=== PATIENT | female | born 1990 | race Caucasian/White ===

== ENCOUNTER 2018-06-03 11:14 | Emergency (ER) | payer OTHER ==
[2018-06-03] MEDS: ACETAMINOPHEN 325 MG TAB PO (12:02)
[2018-06-03 12:17] LABS: ADD MAN DIFF? NO
[2018-06-03 12:27] LABS: ADD UMIC YES; UR ASCORBIC ACID 20 mg/dL (NEGATIVE); UR BACTERIA FEW /HPF (NONE SEEN); UR BILIRUBIN (Dip) NEGATIVE (NEGATIVE); UR BLOOD (Dip) NEGATIVE (NEGATIVE); UR CLARITY CLOUDY (CLEAR); UR COLOR YELLOW (YELLOW); UR GLUCOSE (Dip) NEGATIVE (NEGATIVE); UR KETONES (Dip) NEGATIVE (NEGATIVE); UR LEUKOCYTE ESTERASE (Dip) 2+ Leu/ul (NEGATIVE); UR MUCUS FEW /HPF (NONE SEEN); UR NITRITE (Dip) NEGATIVE (NEGATIVE); UR RBC 2 /HPF (0-5); UR SPECIFIC GRAVITY (Dip) 1.012 (1.003-1.030); UR SQUAMOUS EPITHELIAL CELL MANY /HPF (FEW); UR TOTAL PROTEIN (Dip) NEGATIVE (NEGATIVE); UR UROBILINOGEN (Dip) NEGATIVE (NEGATIVE); UR WBC 15 /HPF (0-5)
[2018-06-03 12:31] LABS: BASOPHIL # 0.1 10^3/ul (0.0-0.1); BASOPHILS % 0.8 % (0.0-2.0); EOSINOPHILS # 0.1 10^3/ul (0.0-0.5); EOSINOPHILS % 0.7 % (0.0-7.0); HEMATOCRIT 40.4 % (37.0-47.0); HEMOGLOBIN 13.9 g/dl (12.0-16.0); LYMPHOCYTES # 2.1 10^3/ul (0.8-2.9); LYMPHOCYTES % 19.9 % (15.0-51.0); MEAN CORPUSCULAR HEMOGLOBIN 30.8 pg (29.0-33.0); MEAN CORPUSCULAR HGB CONC 34.4 g/dl (32.0-37.0); MEAN CORPUSCULAR VOLUME 89.4 fl (82.0-101.0); MEAN PLATELET VOLUME 10.7 fl (7.4-10.4); MONOCYTE # 0.6 10^3/ul (0.3-0.9); MONOCYTES % 5.9 % (0.0-11.0); NEUTROPHIL # 7.5 10^3/ul (1.6-7.5); NEUTROPHILS % 72.2 % (39.0-77.0); PLATELET COUNT 277 10^3/UL (140-415); RED BLOOD COUNT 4.52 10^6/ul (4.20-5.40); RED CELL DISTRIBUTION WIDTH 13.5 % (11.5-14.5)
[2018-06-03 12:31] LABS: WHITE BLOOD COUNT 10.4 10^3/ul (4.8-10.8)
== END 2018-06-03 14:21 | disposition home or self-care (01) ==
LOC: FTE 11:14
DX: O23.41 Unspecified infection of urinary tract in pregnancy, first trimester (principal); R10.2 Pelvic and perineal pain; Z3A.01 Less than 8 weeks gestation of pregnancy
CPT/HCPCS: 36415; 76801; 81001; 84702; 85025; 86900; 86901; 99284-25

== ENCOUNTER 2018-08-16 16:04 | Emergency (ER) | payer OTHER ==
[2018-08-16] MEDS: ACETAMINOPHEN 325 MG TAB PO (17:06)
[2018-08-16 17:19] LABS: ADD MAN DIFF? NO
[2018-08-16 17:28] LABS: ADD UMIC YES; UR ASCORBIC ACID NEGATIVE (NEGATIVE); UR BACTERIA FEW /HPF (NONE SEEN); UR BILIRUBIN (Dip) NEGATIVE (NEGATIVE); UR BLOOD (Dip) NEGATIVE (NEGATIVE); UR CLARITY CLOUDY (CLEAR); UR COLOR YELLOW (YELLOW); UR GLUCOSE (Dip) NEGATIVE (NEGATIVE); UR KETONES (Dip) NEGATIVE (NEGATIVE); UR LEUKOCYTE ESTERASE (Dip) 3+ Leu/ul (NEGATIVE); UR MUCUS FEW /HPF (NONE SEEN); UR NITRITE (Dip) NEGATIVE (NEGATIVE); UR RBC 3 /HPF (0-5); UR SPECIFIC GRAVITY (Dip) 1.021 (1.003-1.030); UR SQUAMOUS EPITHELIAL CELL MANY /HPF (FEW); UR TOTAL PROTEIN (Dip) NEGATIVE (NEGATIVE); UR UROBILINOGEN (Dip) NEGATIVE (NEGATIVE); UR WBC 6 /HPF (0-5)
[2018-08-16 18:11] LABS: BASOPHIL # 0.1 10^3/ul (0.0-0.1); BASOPHILS % 0.6 % (0.0-2.0); EOSINOPHILS # 0.1 10^3/ul (0.0-0.5); EOSINOPHILS % 0.9 % (0.0-7.0); HEMATOCRIT 38.9 % (37.0-47.0); HEMOGLOBIN 13.1 g/dl (12.0-16.0); LYMPHOCYTES # 2.6 10^3/ul (0.8-2.9); MEAN CORPUSCULAR HEMOGLOBIN 30.3 pg (29.0-33.0); MEAN CORPUSCULAR HGB CONC 33.7 g/dl (32.0-37.0); MEAN PLATELET VOLUME 11.4 fl (7.4-10.4); MONOCYTE # 0.7 10^3/ul (0.3-0.9); MONOCYTES % 5.2 % (0.0-11.0); NEUTROPHIL # 8.9 10^3/ul (1.6-7.5); NEUTROPHILS % 71.6 % (39.0-77.0); PLATELET COUNT 238 10^3/UL (140-415); RED BLOOD COUNT 4.32 10^6/ul (4.20-5.40)
[2018-08-16 18:11] LABS: WHITE BLOOD COUNT 12.4 10^3/ul (4.8-10.8)
== END 2018-08-16 19:05 | disposition home or self-care (01) ==
LOC: FTE 16:04
DX: O44.12 Complete placenta previa with hemorrhage, second trimester (principal); O23.42 Unspecified infection of urinary tract in pregnancy, second trimester; Z3A.17 17 weeks gestation of pregnancy
CPT/HCPCS: 36415; 76810; 81001; 84702; 85025; 86900; 86901; 99284-25

== ENCOUNTER 2019-01-20 08:50 | Inpatient (IN) | payer MEDICAID ==
[2019-01-20] MEDS ORDERED: BUTORPHANOL 2 MG INJ IV (10:00)
[2019-01-20] MEDS ORDERED: BUTORPHANOL 1 MG INJ IV (10:00)
[2019-01-20] MEDS ORDERED: METHYLERGONOVINE 0.2 MG INJ IM (10:00)
[2019-01-20] MEDS ORDERED: CARBOPROST 250 MCG INJ IM (10:00)
[2019-01-20] MEDS ORDERED: IBUPROFEN 600 MG TAB PO (10:00)
[2019-01-20] MEDS ORDERED: OXYTOCIN 30 UNITS/LR 500 ML IV ×2 (10:00)
[2019-01-20] MEDS ORDERED: MISOPROSTOL 200 MCG TAB PR (10:00)
[2019-01-20 12:27] LABS: ADD MAN DIFF? NO
[2019-01-20 12:30] LABS: BASOPHIL # 0.1 10^3/ul (0.0-0.1); BASOPHILS % 0.6 % (0.0-2.0); EOSINOPHILS % 0.5 % (0.0-7.0); HEMATOCRIT 37.5 % (37.0-47.0); HEMOGLOBIN 12.2 g/dl (12.0-16.0); LYMPHOCYTES # 1.4 10^3/ul (0.8-2.9); LYMPHOCYTES % 17.6 % (15.0-51.0); MEAN CORPUSCULAR HGB CONC 32.5 g/dl (32.0-37.0); MONOCYTE # 0.5 10^3/ul (0.3-0.9); MONOCYTES % 6.3 % (0.0-11.0); NEUTROPHIL # 5.7 10^3/ul (1.6-7.5); NEUTROPHILS % 74.2 % (39.0-77.0); PLATELET COUNT 182 10^3/UL (140-415); RED BLOOD COUNT 4.36 10^6/ul (4.20-5.40); RED CELL DISTRIBUTION WIDTH 15.3 % (11.5-14.5)
[2019-01-20 12:30] LABS: WHITE BLOOD COUNT 7.7 10^3/ul (4.8-10.8)
[2019-01-20] MEDS: LACTATED RINGER'S 1,000 ML IV ×2 (12:47→23:22)
[2019-01-20 12:53] LABS: INR 0.85; PROTIME 11.7 Sec (11.9-14.9); PT RATIO 0.9
[2019-01-20 12:54] LABS: PARTIAL THROMBOPLASTIN TIME 27.3 Sec (23.0-35.0)
[2019-01-20 13:25] LABS: HEPATITIS B SURFACE ANTIGEN NEGATIVE (NEGATIVE)
[2019-01-20 15:05] LABS: RAPID PLASMA REAGIN NONREACTIVE (NR)
[2019-01-20] MEDS: AMPICILLIN 2 GM/NS (PMX) 100 ML IV (15:49)
[2019-01-20] MEDS: OXYTOCIN 30 UNITS/LR 500 ML IV (16:02)
[2019-01-20] MEDS: AMPICILLIN 1 GM/NS (PMX) 50 ML IV (20:15)
[2019-01-21] MEDS: AMPICILLIN 1 GM/NS (PMX) 50 ML IV ×4 (00:12→14:21)
[2019-01-21] MEDS: LACTATED RINGER'S 1,000 ML IV ×4 (04:59→14:17)
[2019-01-21] MEDS ORDERED: FENTAnyl 2MCG/ML-ROPIV 0.2% 100 ML (06:29)
[2019-01-21] MEDS ORDERED: NALOXONE (0.4 MG/ML) INJ IV (07:00)
[2019-01-21] MEDS ORDERED: FENTAnyl 2MCG/ML-ROPIV 0.2% 100 ML BAG EPI (07:00)
[2019-01-21] MEDS ORDERED: ONDANSETRON 4 MG INJ IV (07:00)
[2019-01-21] MEDS: MINERAL OIL LIGHT 10 ML VIAL TOP (07:30)
[2019-01-21] MEDS: KETOROLAC 30 MG INJ IV (14:45)
[2019-01-21] MEDS: OXYTOCIN 30 UNITS/LR 500 ML IV (15:00)
[2019-01-21] MEDS: LIDOCAINE 1% (MPF) 30 ML INJ INJ (15:05)
[2019-01-21] MEDS: LACTATED RINGER'S 1,000 ML IV* ×2 (16:39→19:21)
[2019-01-21] MEDS ORDERED: CARBOPROST 250 MCG INJ IM (17:00)
[2019-01-21] MEDS ORDERED: ZOLPIDEM 5 MG TAB PO (17:00)
[2019-01-21] MEDS ORDERED: MISOPROSTOL 200 MCG TAB PR (17:00)
[2019-01-21] MEDS ORDERED: METHYLERGONOVINE 0.2 MG INJ IM (17:00)
[2019-01-21] MEDS ORDERED: HYDROCODONE/APAP (5/325) TAB PO ×2 (17:00)
[2019-01-21] MEDS ORDERED: OXYTOCIN 30 UNITS/LR 500 ML IV (17:00)
[2019-01-21] MEDS ORDERED: DIBUCAINE 1% 30 GM OINT TOP (17:00)
[2019-01-21] MEDS: LANOLIN HPA 1 PKT TOP (17:37)
[2019-01-21] MEDS: IBUPROFEN 600 MG TAB PO ×2 (17:37→23:17)
[2019-01-21] MEDS: WITCH HAZEL/GLYCERIN PAD PR (17:37)
[2019-01-21] MEDS: CEPHALEXIN 500 MG CAP PO ×2 (17:37→23:17)
[2019-01-21] MEDS: BENZOCAINE 20% 56 ML SPRAY TOP (17:38)
[2019-01-21] MEDS: MAGNESIUM HYDROXIDE 30ML CUP PO (21:00)
[2019-01-21] MEDS: SENNA/DOCUSATE NA (8.6MG/50MG) TAB PO (21:00)
[2019-01-22] MEDS: CEPHALEXIN 500 MG CAP PO ×4 (06:45→23:39)
[2019-01-22] MEDS: IBUPROFEN 600 MG TAB PO ×4 (06:45→23:39)
[2019-01-22 08:19] LABS: ADD MAN DIFF? NO
[2019-01-22 08:24] LABS: WHITE BLOOD COUNT 11.5 10^3/ul (4.8-10.8)
[2019-01-22 08:24] LABS: BASOPHILS % 0.3 % (0.0-2.0); EOSINOPHILS # 0.1 10^3/ul (0.0-0.5); EOSINOPHILS % 0.7 % (0.0-7.0); HEMATOCRIT 30.6 % (37.0-47.0); HEMOGLOBIN 9.9 g/dl (12.0-16.0); LYMPHOCYTES # 2.1 10^3/ul (0.8-2.9); LYMPHOCYTES % 18.1 % (15.0-51.0); MEAN CORPUSCULAR HGB CONC 32.4 g/dl (32.0-37.0); MEAN CORPUSCULAR VOLUME 86.7 fl (82.0-101.0); MEAN PLATELET VOLUME 11.9 fl (7.4-10.4); MONOCYTES % 8.7 % (0.0-11.0); NEUTROPHIL # 8.2 10^3/ul (1.6-7.5); NEUTROPHILS % 71.5 % (39.0-77.0); PLATELET COUNT 163 10^3/UL (140-415); RED BLOOD COUNT 3.53 10^6/ul (4.20-5.40); RED CELL DISTRIBUTION WIDTH 15.7 % (11.5-14.5)
[2019-01-22] MEDS: LACTATED RINGER'S 1,000 ML IV* ×2 (08:39→16:39)
[2019-01-22] MEDS: MAGNESIUM HYDROXIDE 30ML CUP PO ×2 (09:00→21:00)
[2019-01-22] MEDS: SENNA/DOCUSATE NA (8.6MG/50MG) TAB PO ×2 (09:00→21:00)
[2019-01-23] MEDS: CEPHALEXIN 500 MG CAP PO ×2 (05:38→12:07)
[2019-01-23] MEDS: IBUPROFEN 600 MG TAB PO ×2 (05:39→12:07)
[2019-01-23] MEDS: MAGNESIUM HYDROXIDE 30ML CUP PO (09:00)
[2019-01-23] MEDS: SENNA/DOCUSATE NA (8.6MG/50MG) TAB PO (09:02)
[2019-01-23] MEDS: DIPHTH/TET/ACEL PERTUSS (ADULT) 0.5 ML VIAL IM* (09:02)
[2019-01-23] MEDS: MEASLES,MUMPS,RUBELLA VACCINE INJ SC* (09:03)
[2019-01-23] MEDS: VARICELLA VACCINE LIVE/PF 1,350 UNIT/0.5 ML ML SC* (09:03)
== END 2019-01-23 15:19 | disposition home or self-care (01) | DRG 807 ==
LOC: PP1 01-21 16:34 → L-D 08:50
PROVIDERS: Obstetrics & Gynecology
PROC: 10E0XZZ Delivery of Products of Conception, External Approach (ICD-10-PCS; principal; 2019-01-21)
PROC: 0HQ9XZZ Repair Perineum Skin, External Approach (ICD-10-PCS; 2019-01-21)
DX: O36.63X0 Maternal care for excessive fetal growth, third trimester, not applicable or unspecified (principal); Z37.0 Single live birth; O77.0 Labor and delivery complicated by meconium in amniotic fluid; O70.0 First degree perineal laceration during delivery; O99.824 Streptococcus B carrier state complicating childbirth; O99.214 Obesity complicating childbirth; E66.9 Obesity, unspecified; Z3A.39 39 weeks gestation of pregnancy
CPT/HCPCS: 62319; 76815; 85025; 85610; 85730; 86592; 86850; 86900; 86901; 87340; 90716